=== PATIENT | female | born 1995 | race Caucasian/White ===

== ENCOUNTER 2021-08-02 15:05 | Outpatient (REF) | payer OTHER, SELFPAY ==
--- NOTE | 2021-08-02 09:00 | PAPFT_PTH ---
PATIENT: Teresa Watters LOC: [facility] U#:[id number] AGE/SX: 25/F ROOM: RE08/02/[address]: Lana Solorio : 1995 BED: DIS: 08/02/2021 SPEC #: [id number] RECD: 08/02/21 18:37 STATUS: OSCAR REQ #: [id number] MARYJANE: 08/02/21 09:[address] Cytology RECD BY: Isa Benton ENTERED: 08/02/21 18:38 SP TYPE: PAPFT OTHR DR: Daly Xavier Tissues: 1 - CX/ENDOCX FOR PAP SMEARS Procedures: PAP THIN PREP/[facility] Screening Comments: [id number] (CHLAMYDIA/GC)
[2021-08-02 19:47] LABS: Hemoglobin A1C 5.1 % (<5.7)
[2021-08-02 19:53] LABS: ALT 20 U/L (14-59); AST 15 U/L (15-37); Albumin 3.7 g/dL (3.4-5.0); Alkaline Phosphatase 97 U/L (46-116); Anion Gap 12.6 mmol/L (3-11); BUN 10 mg/dL (7-18); Bilirubin, Total 0.3 mg/dL (0.2-1.0); CO2 22.4 mmol/L (21.0-32.0); CREATININE 0.9 mg/dL (0.55-1.02); Calcium 8.8 mg/dL (8.5-10.1); Calculated LDL 132 mg/dL (<100); Chloride 104 mmol/L (98-107); Cholesterol 196 mg/dL (<200); Glucose 89 mg/dL (74-106); HDL Cholesterol 39 mg/dL (40-60); Potassium 4.1 mmol/L (3.5-5.1); Sodium 139 mmol/L (136-145); Total Protein 7.1 g/dL (6.4-8.2); Triglyceride 129 mg/dL (<150)
[2021-08-03 16:10] LABS: Chlamydia Result Negative (Negative); GC Result Negative (Negative)
== END 2021-08-02 15:06 | disposition home or self-care (01) ==
LOC: NCHCN 15:05
PROVIDERS: PCP Nurse Practitioner Family; Visit Provider Nurse Practitioner Family
DX: Z12.4 Encounter for screening for malignant neoplasm of cervix (principal); Z11.3 Encounter for screening for infections with a predominantly sexual mode of transmission; Z68.35 Body mass index [BMI] 35.0-35.9, adult; Z00.00 Encounter for general adult medical examination without abnormal findings
CPT/HCPCS: 80053; 80061; 87491; 87591; 88142; 83036

== ENCOUNTER 2023-10-26 11:44 | Outpatient (REF) | payer BC, SELFPAY ==
[2023-10-26 19:15] LABS: Iron 117 ug/dL (50-170); Total Iron Binding Capacity 483 ug/dL (250-450); Transferrin Sat 24 % (15-50)
[2023-10-26 19:27] LABS: Ferritin 51 ng/mL (8-252); Glucose 90 mg/dL (74-106)
[2023-10-31 08:58] LABS: Specimen WB Whole Blood
== END 2023-10-26 11:45 | disposition home or self-care (01) ==
LOC: NCHCN 11:44
PROVIDERS: PCP Nurse Practitioner Family; Visit Provider Internal Medicine
DX: E83.110 Hereditary hemochromatosis (principal)
CPT/HCPCS: 81256; 82947; 82728; 83540; 83550

== ENCOUNTER 2025-09-07 18:26 | Outpatient (REF) | payer BC, SELFPAY ==
[2025-09-09 12:50] LABS: Chlamydia Result Negative (Negative); GC Result Negative (Negative)
== END 2025-09-07 18:27 | disposition home or self-care (01) ==
LOC: NCHCN 18:26
PROVIDERS: Visit Provider Nurse Practitioner Family
DX: Z12.4 Encounter for screening for malignant neoplasm of cervix (principal)
CPT/HCPCS: 87491; 87591; 88142